=== PATIENT | female | born 1950 | race Asian ===

== ENCOUNTER 2016-07-12 07:12 | Day surgery (SDC) | payer OTHER ==
[2016-07-10 16:22] VITALS: BMI 23.8
[2016-07-12] MEDS ORDERED: LIDOCAINE HCL 1%, 10 MG/ML (20ML VIAL) ONE (08:17)
[2016-07-12] MEDS ORDERED: HEPARIN NA (PORCINE) 5,000 UNITS/ML 1ML VIAL ONE ×2 (08:18→09:47)
[2016-07-12] MEDS ORDERED: MIDAZOLAM HCL 2 MG/2 ML SINGLE DOSE VIAL ONE ×2 (09:18→09:27)
[2016-07-12] MEDS ORDERED: ceFAZolin SODIUM 1 GM VIAL IVPB ONE (09:21)
[2016-07-12] MEDS ORDERED: ceFAZolin SODIUM 1 GM VIAL ONE (09:26)
[2016-07-12] MEDS ORDERED: LIDOCAINE HCL 1%, 10 MG/ML (20ML VIAL) IJ ONE ×2 (09:35)
[2016-07-12] MEDS ORDERED: HEPARIN NA (PORCINE) 5,000 UNITS/ML 1ML VIAL SQ ONE (09:35)
[2016-07-12] MEDS ORDERED: CLOPIDOGREL BISULFATE 75 MG TABLET (FP) PO ONE (10:23)
--- NOTE | 2016-07-12 10:27 | OP ---
Operative Note - Note: Operative Date: 07/12/16 Pre-Operative Diagnosis: Right lower extremity claudication Operation: Aortogram, Right lower extremity angiogram, SFA DCB angioplasty Findings: Stent occlusion from origin Post-Operative Diagnosis: Same as Pre-op Surgeon: Lai Cole Anesthesia: Fractional Estimated Blood Loss (mls): 50 Operative Report Dictated: Yes
--- NOTE | 2016-07-12 10:28 | HP ---
Admitting History and Physical - Admission Chief Complaint: right lower extremity claudication - Smoking History Smoking history: Former smoker Have you smoked in the past 12 months: Yes Aproximately how many cigarettes per day: 1 - Alcohol/Substance Use Hx Alcohol Use: No Home Medications - Allergies Allergies/Adverse Reactions: Allergies Allergy/AdvReac Type Severity Reaction Status Date / Time No Known Drug Allergies Allergy Verified 07/12/16 08:38 - Home Medications Home Medications: Ambulatory Orders Clopidogrel Bisulfate [Plavix -] 75 mg PO HS 04/15/15 Cyanocobalamin [Vitamin B12 -] 1,000 mcg PO DAILY 04/15/15 Insulin Detemir [Levemir Flextouch] 47 unit SQ HS 04/15/15 Levothyroxine [Synthroid -] 88 mcg PO DAILY 04/15/15 Valsartan [Diovan] 320 mg PO DAILY 04/15/15 Vitamin B Complex [B Complex] 1 each PO HS 04/15/15 Amlodipine Besylate 10 mg PO DAILY 01/25/16 Bimatoprost [Lumigan] 1 drop OU BID 01/25/16 Polyethylene Glycol 300 [Base C Polyethylene Glycol 300] 1 ml MC BID 01/25/16 Clopidogrel Bisulfate [Plavix -] 75 mg PO DAILY #30 tablet 07/12/16 Physical Examination Vital Signs: Vital Signs Temperature 97.7 F 07/12/16 08:37 Pulse Rate 80 07/12/16 08:37 Respiratory Rate 20 07/12/16 08:37 Blood Pressure 123/72 07/12/16 08:37 O2 Sat by Pulse Oximetry (%) 100 07/12/16 08:33 Constitutional: Yes: Well Nourished Eyes: Yes: WNL HENT: Yes: WNL Neck: Yes: WNL Cardiovascular: Yes: WNL Respiratory: Yes: WNL Gastrointestinal: Yes: WNL Extremities: Yes: WNL Edema: No Assessment/Plan right lower ext claudication 1. For angiogram today
[2016-07-12] MEDS ORDERED: ONDANSETRON 4 MG/2 ML VIAL IVPUSH PRN (10:33)
[2016-07-12] MEDS ORDERED: oxyCODONE HCL 5 MG TABLET PO PRN (10:33)
[2016-07-12] MEDS ORDERED: PROMETHAZINE HCL 25 MG/1 ML VIAL IVPUSH PRN (10:33)
[2016-07-12] MEDS ORDERED: CLOPIDOGREL BISULFATE 75 MG TABLET (FP) ONE (11:28)
--- NOTE | 2016-07-12 11:46 | OP ---
DATE OF OPERATION: 07/12/2016 PREOPERATIVE DIAGNOSIS: Right lower extremity claudication. POSTOPERATIVE DIAGNOSIS: Right lower extremity claudication. PROCEDURE: Aortogram, right lower extremity angiogram, right superficial femoral artery drug-coated balloon angioplasty. SURGEON: Lai Ty DO ANESTHESIA: Fractional. BLOOD LOSS: 50 mL. INDICATION: The patient is a 66-year-old female who has right lower extremity claudication. In the past she has had right SFA stents placed which 1 time prior the stents had closed from the origin, where she had another new stent placed and had angioplasty. Now she had preoperative ultrasound done as part of her surveillance, and it was found that her stents were closed again in the midportion. At this point it was decided that she would need a repeat angiogram. The patient was consented for the procedure, understanding all risks, benefits, and alternatives. She was then brought into the operating room. DESCRIPTION OF PROCEDURE: Once in operating suite, placed on the operating table in supine manner. The area of the left and right groins was prepped and draped in sterile surgical manner. We then injected 10 mL of lidocaine 1% over the left common femoral artery. We then went ahead and used our Micropuncture needle, punctured the left common femoral artery. Micropuncture wire was inserted and Micropuncture sheath was inserted. Additional 5-S[place]ankan sheath was inserted. A 0.035 floppy guidewire was inserted into the aorta, followed by a Urbina catheter. We then shot an aortogram via hand injection showing that the aorta and iliac arteries were without any disease. We then placed a 0.035 floppy guidewire down to the right common femoral artery, followed by the Urbina catheter. We then shot an angiogram of the right lower extremity showing that the SFA was closed at the origin where the stents were, all the way down to the mid SFA. The distal SFA stents were patent. At this point we placed a 0.035 stiff guidewire into the SFA. We then removed our Urbina catheter. We then placed a 6 x 45 crossover sheath. IV heparin 5000 units was administered to the patient. We then went ahead and using our Quick-Cross catheter we were able to cross our stent and placed a wire in anterior tibial artery. We then went ahead and used a 4 x 4 Ultraverse balloon to open one of the stents in the mid SFA. We then went ahead and used two 6 x 150 Lutonix drug-coated balloons and performed angioplasty of the entire SFA which was lined with the stent. Completion angiogram then was performed of the right lower extremity showing that the common femoral artery was patent, profunda was patent, SFA was completely patent. Popliteal artery was patent, and patient had main runoff into the foot with the anterior tibial artery. At this point we brought our sheath up and over, and StarClose device was successfully deployed in the left common femoral artery. Pressure was held for 5 minutes. There was no bleeding. Area was wet and dried and Dermabond was placed. The patient tolerated the procedure with no complication. Patient transferred to PACU in stable condition. LAI TY DO [id number]
[2016-07-12 11:47] VITALS: TEMP 98.5
[2016-07-12 13:27] VITALS: BP 144/74; PULSE 75
== END 2016-07-12 13:00 | disposition home or self-care (01) ==
LOC: JASU-SURG 07:12
PROVIDERS: ATTEND Surgery Vascular Surgery
PROC: 047N3D1 Dilation of Left Popliteal Artery with Intraluminal Device, using Drug-Coated Balloon, Percutaneous Approach (ICD-10-PCS; principal; 2016-07-12 08:30)
DX: I70.211 Atherosclerosis of native arteries of extremities with intermittent claudication, right leg (principal); Z87.891 Personal history of nicotine dependence
CPT/HCPCS: 37226; C1874; C2623; 76000-TC; 94760; J1644

== ENCOUNTER 2017-07-25 07:47 | Day surgery (SDC) | payer BC, OTHER ==
[2017-07-24 10:04] VITALS: BMI 25.3
[2017-07-25] MEDS ORDERED: HEPARIN NA (PORCINE) 5,000 UNITS/ML 1ML VIAL ONE (08:39)
[2017-07-25] MEDS ORDERED: LIDOCAINE HCL 1%, 10 MG/ML (20ML VIAL) ONE (08:39)
--- NOTE | 2017-07-25 09:03 | HP ---
Admitting History and Physical - Admission Chief Complaint: RLE claudication. History of SFA angioplasty with stent placement. Limitations to Obtaining History: No Limitations - Past Medical History ...: No - Smoking History Smoking history: Never smoked Have you smoked in the past 12 months: No Aproximately how many cigarettes per day: 0 - Alcohol/Substance Use Hx Alcohol Use: No Home Medications - Allergies Allergies/Adverse Reactions: Allergies Allergy/AdvReac Type Severity Reaction Status Date / Time anesthesia Allergy Intermediate Swelling Uncoded 07/24/17 10:08 - Home Medications Home Medications: Ambulatory Orders Clopidogrel Bisulfate [Plavix -] 75 mg PO HS 04/15/15 Cyanocobalamin [Vitamin B12 -] 1,000 mcg PO DAILY 04/15/15 Insulin Detemir [Levemir Flextouch] 47 unit SQ 04/15/15 Levothyroxine [Synthroid -] 88 mcg PO DAILY 04/15/15 Valsartan [Diovan] 320 mg PO DAILY 04/15/15 Vitamin B Complex [B Complex] 1 each PO 04/15/15 Amlodipine Besylate 10 mg PO DAILY 01/25/16 Bimatoprost [Lumigan] 1 drop OU 01/25/16 Polyethylene Glycol 300 [Base C Polyethylene Glycol 300] 1 ml MC BID 01/25/16 Review of Systems - Review of Systems Constitutional: reports: No Symptoms Eyes: reports: No Symptoms HENT: reports: No Symptoms Neck: reports: No Symptoms Cardiovascular: reports: No Symptoms Respiratory: reports: No Symptoms Gastrointestinal: reports: No Symptoms Genitourinary: reports: No Symptoms Breasts: reports: No Symptoms Reported Musculoskeletal: reports: No Symptoms Integumentary: reports: No Symptoms Neurological: reports: No Symptoms Endocrine: reports: No Symptoms Hematology/Lymphatic: reports: No Symptoms Psychiatric: reports: No Symptoms Physical Examination Vital Signs: Vital Signs Temperature 97.9 F 07/25/17 08:21 Pulse Rate 78 07/25/17 08:21 Respiratory Rate 20 07/25/17 08:21 Blood Pressure 112/59 07/25/17 08:21 O2 Sat by Pulse Oximetry (%) 99 07/25/17 08:20 Constitutional: Yes: Well Nourished, No Distress, Calm Eyes: Yes: WNL, Conjunctiva Clear, EOM Intact HENT: Yes: WNL, Atraumatic, Normocephalic Neck: Yes: WNL, Supple, Trachea Midline Cardiovascular: Yes: WNL, Regular Rate and Rhythm Respiratory: Yes: WNL, Regular, CTA Bilaterally Gastrointestinal: Yes: WNL, Normal Bowel Sounds Musculoskeletal: Yes: WNL Extremities: Yes: WNL Edema: No Integumentary: Yes: WNL Neurological: Yes: WNL, Alert, Oriented ...Motor Strength: WNL Psychiatric: Yes: WNL Problem List - Problems (1) Arterial insufficiency of lower extremity Code(s): I73.9 - PERIPHERAL VASCULAR DISEASE, UNSPECIFIED Assessment/Plan RLE claudication 1. For angiogram today.
[2017-07-25] MEDS ORDERED: MIDAZOLAM HCL 2 MG/2 ML SINGLE DOSE VIAL ONE (10:04)
[2017-07-25] MEDS ORDERED: PROPOFOL 20 ML ONE (10:04)
[2017-07-25] MEDS ORDERED: LIDOCAINE HCL/PF 2% SDV 5ML VIAL ONE (10:04)
--- NOTE | 2017-07-25 10:37 | OP ---
Operative Note - Note: Operative Date: 07/25/17 Pre-Operative Diagnosis: RLE claudication Operation: Aortogram, RLE angiogram, SFA angioplasty Findings: Instent stenosis Post-Operative Diagnosis: Same as Pre-op Surgeon: Lai Cole Anesthesia: Fractional Estimated Blood Loss (mls): 30 Operative Report Dictated: Yes
[2017-07-25] MEDS ORDERED: ONDANSETRON 4 MG/2 ML VIAL IVPUSH PRN (10:45)
[2017-07-25 12:30] VITALS: TEMP 98
[2017-07-25] MEDS ORDERED: LACTATED RINGERS SOLUTION 1,000 ML IV SCH (14:30)
[2017-07-25 15:39] VITALS: BP 114/55; PULSE 77
--- NOTE | 2017-08-09 17:47 | OP ---
DATE OF OPERATION: 07/25/2017 PREOPERATIVE DIAGNOSIS: Right lower extremity claudication. POSTOPERATIVE DIAGNOSIS: Right lower extremity claudication. PROCEDURE: Aortogram, right lower extremity angiogram, angioplasty. FINDINGS: Extensive stenosis. SURGEON: Lai Ty D.O. ANESTHESIA: Fractional. BLOOD LOSS: 10 mL. INDICATION: The patient is a 67-year-old female that comes in with right lower extremity claudication. She has had SFA angioplasty with stent placement in the past for occlusion of her SFA. On preoperative ultrasound, the SFA stent was occluded in certain areas, and patient needs an angiogram. Patient came into ambulatory surgery. Patient was consented for the procedure understanding all risks, benefits, and alternatives and then taken to the operating room. DESCRIPTION OF PROCEDURE: Once in the operating room, she was laid on the operating table in a supine manner, and the area of the left groin was prepped and draped in a sterile surgical manner. We then injected 10 mL of lidocaine 1% over the left common femoral artery. We then used a Micropuncture needle and punctured the left common femoral artery. A Micropuncture wire was inserted, and a 5-Amharic sheath was inserted. We then placed a 0.035 floppy guidewire up into the aorta followed by an Omniflush catheter. We then shot an aortogram by hand injection showing that the aorta and the iliac arteries were without any disease. We then used our 0.035 stiff guidewire and went up and over to the right common femoral artery and our Omniflush catheter followed. We then went ahead and shot a right lower extremity angiogram via hand injection showing that the common femoral artery and the profunda were patent, but the SFA was patent with areas of severe stenosis in the stent. The area after the stent in the distal SFA and popliteal artery were all patent. At this point, we placed 0.035 stiff guidewire down into the SFA stent. We removed Omniflush catheter, placed a 6 x 45 crossover sheath. 5000 units of IV heparin were administered to the patient. We then went ahead and brought our wire all the way down into the popliteal artery. We then used a 5 x 200 balloon and performed angioplasty of the entire stent. Completion angiogram now showed that the stent was patent. There was good brisk flow into the foot. At this point, we brought our sheath up and over, Starclose device was successfully deployed in the left common femoral artery. Pressure was held for 5 minutes, after which there was no more bleeding. Areas were then dried and Dermabond was placed. Patient tolerated the procedure with no complications. Patient was transferred to PACU in stable condition. LAI TY DO [id number]
== END 2017-07-25 14:45 | disposition home or self-care (01) ==
LOC: JASU-SURG 07:47
PROVIDERS: ATTEND Surgery Vascular Surgery
PROC: B41DZZZ Fluoroscopy of Aorta and Bilateral Lower Extremity Arteries (ICD-10-PCS; 2017-07-25)
PROC: 047K3ZZ Dilation of Right Femoral Artery, Percutaneous Approach (ICD-10-PCS; principal; 2017-07-25 09:00)
DX: I70.211 Atherosclerosis of native arteries of extremities with intermittent claudication, right leg (principal); E11.9 Type 2 diabetes mellitus without complications; Z79.4 Long term (current) use of insulin; I10 Essential (primary) hypertension; D64.9 Anemia, unspecified
CPT/HCPCS: 37224; C1725; 76000-TC-FY; 82962; 94760; J1644

== ENCOUNTER 2017-12-19 08:15 | Day surgery (SDC) | payer OTHER ==
[2017-12-18 13:23] VITALS: BMI 25.3
[2017-12-19] MEDS ORDERED: HEPARIN NA (PORCINE) 5,000 UNITS/ML 1ML VIAL ONE (10:29)
[2017-12-19] MEDS ORDERED: LIDOCAINE HCL 2% (20ML MULTI-DOSE VIAL) NR ONE (10:29)
[2017-12-19] MEDS ORDERED: MIDAZOLAM HCL 2 MG/2 ML SINGLE DOSE VIAL ONE ×2 (10:55)
[2017-12-19] MEDS ORDERED: ceFAZolin SODIUM 1 GM VIAL IVPB ONE (11:00)
[2017-12-19] MEDS ORDERED: LIDOCAINE HCL 1%, 10 MG/ML (20ML VIAL) NR ONE (11:05)
[2017-12-19] MEDS ORDERED: HEPARIN NA (PORCINE) 5,000 UNITS/ML 1ML VIAL SQ ONE (11:07)
[2017-12-19] MEDS ORDERED: ONDANSETRON 4 MG/2 ML VIAL IVPUSH PRN (11:53)
[2017-12-19] MEDS ORDERED: oxyCODONE HCL 5 MG TABLET PO PRN (11:53)
[2017-12-19] MEDS ORDERED: PROMETHAZINE HCL 25 MG/1 ML VIAL IVPB PRN (11:53)
[2017-12-19] MEDS ORDERED: LACTATED RINGERS SOLUTION 1,000 ML IV SCH (12:00)
--- NOTE | 2017-12-19 12:04 | OP ---
Operative Note - Note: Operative Date: 12/19/17 Pre-Operative Diagnosis: Right lower extremity claudication Operation: Aortogram, RLE angiogram, SFA angioplasty Findings: Instent stenosis Post-Operative Diagnosis: Same as Pre-op Surgeon: Lai Cole Anesthesia: Fractional Estimated Blood Loss (mls): 50 Operative Report Dictated: Yes
--- NOTE | 2017-12-19 12:05 | HP ---
Admitting History and Physical - Admission Chief Complaint: Right lower extremity claudication, with history of sfa stents Limitations to Obtaining History: No Limitations - Past Medical History ...: No - Smoking History Smoking history: Former smoker Have you smoked in the past 12 months: No Aproximately how many cigarettes per day: 1 If you are a former smoker, when did you quit?: 03/2017 - Alcohol/Substance Use Hx Alcohol Use: No Home Medications - Allergies Allergies/Adverse Reactions: Allergies Allergy/AdvReac Type Severity Reaction Status Date / Time Anesthetics - Gege Type- Allergy Severe Swelling Verified 12/18/17 13:01 Parabens - Home Medications Home Medications: Ambulatory Orders Clopidogrel Bisulfate [Plavix -] 75 mg PO HS 04/15/15 Cyanocobalamin [Vitamin B12 -] 1,000 mcg PO DAILY 04/15/15 Levothyroxine [Synthroid -] 88 mcg PO DAILY 04/15/15 Valsartan [Diovan] 320 mg PO DAILY 04/15/15 Vitamin B Complex [B Complex] 1 each PO HS 04/15/15 Amlodipine Besylate 10 mg PO DAILY 01/25/16 Bimatoprost [Lumigan] 1 drop OU HS 01/25/16 Polyethylene Glycol 300 [Base C Polyethylene Glycol 300] 1 ml MC BID 01/25/16 Insulin Degludec [Tresiba Flextouch U-200] 200 unit SQ DAILY 12/18/17 Review of Systems - Review of Systems Constitutional: reports: No Symptoms Eyes: reports: No Symptoms HENT: reports: No Symptoms Neck: reports: No Symptoms Cardiovascular: reports: No Symptoms Respiratory: reports: No Symptoms Gastrointestinal: reports: No Symptoms Musculoskeletal: reports: No Symptoms Integumentary: reports: No Symptoms Neurological: reports: No Symptoms Hematology/Lymphatic: reports: No Symptoms Psychiatric: reports: No Symptoms Physical Examination Vital Signs: Vital Signs Temperature 97.8 F 12/19/17 08:48 Pulse Rate 75 12/19/17 08:48 Respiratory Rate 18 12/19/17 08:48 Blood Pressure 116/57 L 12/19/17 08:48 O2 Sat by Pulse Oximetry (%) 100 12/19/17 08:48 Constitutional: Yes: Well Nourished, No Distress, Calm Eyes: Yes: WNL, Conjunctiva Clear, EOM Intact HENT: Yes: WNL, Atraumatic, Normocephalic Neck: Yes: WNL, Supple, Trachea Midline Cardiovascular: Yes: WNL, Regular Rate and Rhythm Respiratory: Yes: WNL, Regular, CTA Bilaterally Gastrointestinal: Yes: WNL, Normal Bowel Sounds Musculoskeletal: Yes: WNL Extremities: Yes: WNL Edema: No Integumentary: Yes: WNL Neurological: Yes: WNL, Alert, Oriented ...Motor Strength: WNL Psychiatric: Yes: WNL Problem List - Problems (1) Claudication of right lower extremity Assessment/Plan: Claudication right lower ext. 1. For angiogram today Code(s): I73.9 - PERIPHERAL VASCULAR DISEASE, UNSPECIFIED (2) Arterial insufficiency of lower extremity Code(s): I73.9 - PERIPHERAL VASCULAR DISEASE, UNSPECIFIED
[2017-12-19] MEDS ORDERED: oxyCODONE HCL 5 MG TABLET ONE (13:11)
[2017-12-19 14:46] VITALS: TEMP 97.7
--- NOTE | 2017-12-19 15:09 | OP ---
ADDENDUM DATE OF OPERATION: DATE OF DICTATION: 12/19/2017 The operation should say aortogram, right lower extremity angiogram, SFA angioplasty with SFA stent placement. MINH TY DO [id number]
--- NOTE | 2017-12-19 15:45 | OP ---
DATE OF OPERATION: 12/19/2017 PREOPERATIVE DIAGNOSIS: Right lower extremity claudication. POSTOPERATIVE DIAGNOSIS: Right lower extremity claudication. PROCEDURE: Aortogram, right lower extremity angiogram, SFA angioplasty. FINDINGS: In-stent stenosis of right SFA. SURGEON: Lai Ty DO ANESTHESIA: Fractional. BLOOD LOSS: 50 mL. The patient is a 67-year-old female that comes in with right lower extremity claudication. She has a history of SFA stent and angioplasty. She had a preoperative ultrasound showing the stents were occluded. She came in through ambulatory surgery. Patient was consented for the procedure, understanding all risks, benefits, and alternatives and taken to the operating room. Once in the operating room, she was placed on the operating table in supine manner. The area of the right and left groin were prepped and draped in sterile surgical manner. We then went ahead and injected 10 mL of lidocaine 1% over the left common femoral artery. We then went ahead and used our micropuncture needed to puncture the left common femoral artery, and micropuncture wire was inserted, micropuncture sheath was inserted, and a traditional 5-Upper Sorbian sheath was inserted. A 0.035 floppy guidewire was placed into the aorta followed by Omni Flush catheter. We then shot an aortogram via hand injection showing that the aorta and the iliac arteries were without any disease. We then went up and over using our wire and placed a wire in the right common femoral artery, and an Omni Flush catheter followed. We then used a 0.035 Stiff 260 wire. We were able to place the wire. We then were able to selectively cannulate it into our stent. We then went ahead and removed our Omni Flush catheter, and 6 x 45 Crossover sheath was placed, and 5000 units of IV heparin was administered. We then went ahead and shot an angiogram of the right lower extremity showing that the stents were occluded from its proximal distal portion and the behind knee popliteal artery was patent with 2 vessel runoff. At this point, we placed a 0.035 Stiff guidewire down the stent along with a Quick-Cross catheter, and we were able to cross the stent and place the wire into the craig artery. We then went ahead and used a 6 x 200 ULTRAVERSE balloon, and we went ahead and performed angioplasty of the entire stent. Completion angiogram now showed that the stent was opened, but the proximal area had significant stenosis. At this point, the 6 x 4 LIFESTENT was placed in the proximal SFA at the origin, and the stent was ballooned in place using a 6 x 4 ULTRAVERSE balloon. Completion angiogram now showed that the proximal portion was completely patent and there was good runoff through the stent into the popliteal artery, and it was 2-vessel runoff with main runoff being the TP into the foot. At this point, we brought our sheath up and over, and StarClose Device was successfully deployed in the left common femoral artery. Pressure was held for 5 minutes. After there was no more bleeding. The areas were then dried, and Dermabond was placed. Patient tolerated the procedure with no complication. Patient transferred to PACU in stable condition. LAI TY DO [id number]
[2017-12-19 17:01] VITALS: BP 107/59; PULSE 64
== END 2017-12-19 16:00 | disposition home or self-care (01) ==
LOC: JASU-SURG 08:15
PROVIDERS: ATTEND Surgery Vascular Surgery
PROC: 047K3DZ Dilation of Right Femoral Artery with Intraluminal Device, Percutaneous Approach (ICD-10-PCS; principal; 2017-12-19 10:00)
DX: I70.211 Atherosclerosis of native arteries of extremities with intermittent claudication, right leg (principal); E11.9 Type 2 diabetes mellitus without complications; I10 Essential (primary) hypertension; Z79.4 Long term (current) use of insulin
CPT/HCPCS: 37226; C1877; 76000-TC-FY; 94760; J1644

== ENCOUNTER 2018-04-10 10:21 | Day surgery (SDC) | payer OTHER ==
[2018-04-01 17:58] VITALS: BMI 24.5
[2018-04-10] MEDS ORDERED: LIDOCAINE HCL/PF 2% SDV 5ML VIAL ONE (13:32)
[2018-04-10] MEDS ORDERED: HEPARIN NA (PORCINE) 5,000 UNITS/ML 1ML VIAL ONE (13:32)
[2018-04-10] MEDS ORDERED: MIDAZOLAM HCL 2 MG/2 ML SINGLE DOSE VIAL ONE (13:33)
[2018-04-10] MEDS ORDERED: PROPOFOL 20 ML ONE (13:33)
[2018-04-10] MEDS ORDERED: ceFAZolin SODIUM 1 GM VIAL IVPB ONE (14:00)
[2018-04-10] MEDS ORDERED: LIDOCAINE HCL 1%, 10 MG/ML (20ML VIAL) NR ONE ×2 (14:02)
[2018-04-10] MEDS ORDERED: ceFAZolin SODIUM 1 GM VIAL ONE (14:08)
[2018-04-10] MEDS ORDERED: oxyCODONE HCL 5 MG TABLET PO PRN (15:03)
[2018-04-10] MEDS ORDERED: ONDANSETRON 4 MG/2 ML VIAL IVPUSH PRN (15:03)
[2018-04-10] MEDS ORDERED: LACTATED RINGERS SOLUTION 1,000 ML IV SCH (15:15)
--- NOTE | 2018-04-10 15:23 | OP ---
Operative Note - Note: Operative Date: 04/10/18 Pre-Operative Diagnosis: RLE claudication Operation: aortogram, RLE angiogram, SFA angioplasty Findings: instent stenosis Post-Operative Diagnosis: Same as Pre-op Surgeon: Lai Cole Anesthesia: Fractional Estimated Blood Loss (mls): 50 Operative Report Dictated: Yes
[2018-04-10] MEDS ORDERED: CLOPIDOGREL BISULFATE 75 MG TABLET (FP) PO ONE (15:24)
--- NOTE | 2018-04-10 15:24 | HP ---
Admitting History and Physical - Admission Chief Complaint: RLE claudication Limitations to Obtaining History: No Limitations - Past Medical History ...: No - Smoking History Smoking history: Former smoker Have you smoked in the past 12 months: No Aproximately how many cigarettes per day: 1 If you are a former smoker, when did you quit?: 2016 - Alcohol/Substance Use Hx Alcohol Use: No Home Medications - Allergies Allergies/Adverse Reactions: Allergies Allergy/AdvReac Type Severity Reaction Status Date / Time Anesthetics - Gege Type- Allergy Severe Swelling Verified 04/10/18 11:36 Parabens - Home Medications Home Medications: Ambulatory Orders Clopidogrel Bisulfate [Plavix -] 75 mg PO HS 04/15/15 Cyanocobalamin [Vitamin B12 -] 1,000 mcg PO DAILY 04/15/15 Levothyroxine [Synthroid -] 88 mcg PO DAILY 04/15/15 Valsartan [Diovan] 320 mg PO DAILY 04/15/15 Vitamin B Complex [B Complex] 1 each PO HS 04/15/15 Amlodipine Besylate 10 mg PO DAILY 01/25/16 Bimatoprost [Lumigan] 1 drop OU HS 01/25/16 Polyethylene Glycol 300 [Base C Polyethylene Glycol 300] 1 ml MC BID 01/25/16 Insulin Degludec [Tresiba Flextouch U-200] 200 unit SQ DAILY 12/18/17 Insulin Glargine,Hum.rec.anlog [Toujeo Solostar] 30 unit SQ DAILY 04/01/18 Insulin Lispro [Humalog] 5 unit SQ TID 04/01/18 Review of Systems - Review of Systems Constitutional: reports: No Symptoms Eyes: reports: No Symptoms HENT: reports: No Symptoms Neck: reports: No Symptoms Cardiovascular: reports: No Symptoms Respiratory: reports: No Symptoms Gastrointestinal: reports: No Symptoms Genitourinary: reports: No Symptoms Breasts: reports: No Symptoms Reported Musculoskeletal: reports: No Symptoms Integumentary: reports: No Symptoms Neurological: reports: No Symptoms Endocrine: reports: No Symptoms Hematology/Lymphatic: reports: No Symptoms Psychiatric: reports: No Symptoms Physical Examination Vital Signs: Vital Signs Temperature 98.2 F 04/10/18 11:35 Pulse Rate 84 04/10/18 11:35 Respiratory Rate 20 04/10/18 11:35 Blood Pressure 133/65 04/10/18 11:35 O2 Sat by Pulse Oximetry (%) 96 04/10/18 11:29 Constitutional: Yes: Well Nourished, No Distress, Calm Eyes: Yes: WNL, Conjunctiva Clear, EOM Intact HENT: Yes: WNL, Atraumatic, Normocephalic Neck: Yes: WNL, Supple, Trachea Midline Cardiovascular: Yes: WNL, Regular Rate and Rhythm Respiratory: Yes: WNL, Regular, CTA Bilaterally Gastrointestinal: Yes: WNL, Normal Bowel Sounds Musculoskeletal: Yes: WNL Extremities: Yes: WNL Edema: No Peripheral Pulses WNL: No Integumentary: Yes: WNL Neurological: Yes: WNL, Alert, Oriented ...Motor Strength: WNL Psychiatric: Yes: WNL Problem List - Problems (1) Claudication of right lower extremity Assessment/Plan: For RLE angiogram today Code(s): I73.9 - PERIPHERAL VASCULAR DISEASE, UNSPECIFIED
[2018-04-10] MEDS ORDERED: CLOPIDOGREL BISULFATE 75 MG TABLET (FP) ONE (16:28)
[2018-04-10 17:15] VITALS: TEMP 97.8
[2018-04-10 17:47] VITALS: BP 135/51; PULSE 82
--- NOTE | 2018-04-11 23:43 | OP ---
DATE OF OPERATION: 04/10/2018 PREOPERATIVE DIAGNOSIS: Right lower extremity claudication. POSTOPERATIVE DIAGNOSIS: Right lower extremity claudication. PROCEDURE: Aortogram, right lower extremity angiogram, and angioplasty. SURGEON: Lai Ty M.D. ANESTHESIA: Fractional. BLOOD LOSS: 20 mL. INDICATION: The patient is a 67-year-old female who has right lower extremity claudication. On preoperative ultrasound it showed that stents in the right lower extremity in the SFA are occluded. Patient came into ambulatory surgery. Patient was consented for the procedure understanding all risks, benefits, and alternatives and taken to the operating room. DESCRIPTION OF PROCEDURE: Once in the operating room, she was laid on the operating table in a supine manner, and the area of the left and right groin are prepped and draped in a sterile surgical manner. We then injected 10 mL of lidocaine 1% over the left common femoral artery. We then punctured the left common femoral artery. A Micropuncture sheath was inserted, and a traditional 5-Hungarian sheath was inserted. We then placed 0.035 floppy guidewire up into the aorta followed by an Omniflush catheter. We then shot an aortogram by hand injection which showed that the aorta and the iliac arteries were without any disease. We then used our 0.035 floppy guide wire and went up and over to the right common femoral artery and our Omniflush catheter followed. We then shot an angiogram of the right lower extremity showing that the profundus opened, the common femoral arteries were open, but the SFA stents from the origin down to the distal SFA were occluded. The patient had 2-vessel runoff into the foot. At this point, we placed 0.035 stiff guidewire down into the SFA into the stents, Omniflush catheter was removed, and a 6 x 45 crossover sheath was placed. At this point we placed 0.035 stiff guidewire along with one of the Quick-Cross catheter, placed a wire down into the below knee popliteal artery. We then used a 5 x 200 Ultraverse balloon and performed angioplasty of the entire in stent stenosis. We then shot an angiogram, now showed that the stents were patent, there was good brisk flow into the foot. There was no further intervention needed. At this point, we brought our sheath up and over, and StarClose device was successfully deployed on the left common femoral artery. Pressure was held for 5 minutes until there was no bleeding. Areas were then dried and Dermabond was placed. Patient tolerated the procedure without complications. Patient was transferred to PACU in stable condition. LAI TY DO [id number]
== END 2018-04-10 17:40 | disposition home or self-care (01) ==
LOC: JASU-SURG 10:21
PROVIDERS: ATTEND Surgery Vascular Surgery
PROC: 047K3ZZ Dilation of Right Femoral Artery, Percutaneous Approach (ICD-10-PCS; principal; 2018-04-10 13:00)
DX: I70.211 Atherosclerosis of native arteries of extremities with intermittent claudication, right leg (principal); I10 Essential (primary) hypertension; E11.9 Type 2 diabetes mellitus without complications; Z79.4 Long term (current) use of insulin
CPT/HCPCS: 37224; C1885; 76000-TC-FY; 82962; 94760; J1644

== ENCOUNTER 2018-05-08 09:12 | Day surgery (SDC) | payer OTHER ==
[2018-05-07 17:38] VITALS: BMI 24.5
[2018-05-08] MEDS ORDERED: fentaNYL CITRATE 250 MCG/5 ML VIAL ONE (10:48)
[2018-05-08] MEDS ORDERED: PROPOFOL 20 ML ONE ×2 (10:48→11:33)
[2018-05-08] MEDS ORDERED: MIDAZOLAM HCL 2 MG/2 ML SINGLE DOSE VIAL ONE ×3 (10:48)
[2018-05-08] MEDS ORDERED: HEPARIN NA (PORCINE) 5,000 UNITS/ML 1ML VIAL ONE (10:54)
[2018-05-08] MEDS ORDERED: ceFAZolin SODIUM 1 GM VIAL IVPB ONE (11:05)
[2018-05-08] MEDS ORDERED: LIDOCAINE HCL 1% PRESERVATIVE FREE - 30ML VIAL IJ ONE (11:12)
[2018-05-08] MEDS ORDERED: ONDANSETRON 4 MG/2 ML VIAL IVPUSH PRN (12:32)
[2018-05-08] MEDS ORDERED: oxyCODONE HCL 5 MG TABLET PO PRN (12:32)
[2018-05-08] MEDS ORDERED: PROMETHAZINE HCL 25 MG/1 ML VIAL IVPB PRN (12:32)
--- NOTE | 2018-05-08 12:46 | HP ---
Admitting History and Physical - Admission Chief Complaint: RLE claudcication less than one block Limitations to Obtaining History: No Limitations - Past Medical History ...: No - Smoking History Smoking history: Former smoker Have you smoked in the past 12 months: No Aproximately how many cigarettes per day: 1 If you are a former smoker, when did you quit?: 2016 - Alcohol/Substance Use Hx Alcohol Use: No Home Medications - Allergies Allergies/Adverse Reactions: Allergies Allergy/AdvReac Type Severity Reaction Status Date / Time Anesthetics - Gege Type- Allergy Severe Swelling Verified 05/08/18 09:47 Parabens - Home Medications Home Medications: Ambulatory Orders Clopidogrel Bisulfate [Plavix -] 75 mg PO HS 04/15/15 Cyanocobalamin [Vitamin B12 -] 1,000 mcg PO DAILY 04/15/15 Levothyroxine [Synthroid -] 88 mcg PO DAILY 04/15/15 Valsartan [Diovan] 320 mg PO DAILY 04/15/15 Vitamin B Complex [B Complex] 1 each PO HS 04/15/15 Amlodipine Besylate 10 mg PO DAILY 01/25/16 Bimatoprost [Lumigan] 1 drop OU HS 01/25/16 Polyethylene Glycol 300 [Base C Polyethylene Glycol 300] 1 ml MC BID 01/25/16 Insulin Degludec [Tresiba Flextouch U-200] 200 unit SQ DAILY 12/18/17 Insulin Glargine,Hum.rec.anlog [Toujeo Solostar] 30 unit SQ DAILY 04/01/18 Insulin Lispro [Humalog] 5 unit SQ TID 04/01/18 Ibuprofen [Motrin -] 400 mg PO TID #90 tablet 04/11/18 Review of Systems - Review of Systems Constitutional: reports: No Symptoms Eyes: reports: No Symptoms HENT: reports: No Symptoms Neck: reports: No Symptoms Cardiovascular: reports: No Symptoms Respiratory: reports: No Symptoms Gastrointestinal: reports: No Symptoms Genitourinary: reports: No Symptoms Musculoskeletal: reports: No Symptoms Integumentary: reports: No Symptoms Neurological: reports: No Symptoms Endocrine: reports: No Symptoms Hematology/Lymphatic: reports: No Symptoms Psychiatric: reports: No Symptoms Physical Examination Vital Signs: Vital Signs Temperature 97.5 F L 05/08/18 09:31 Pulse Rate 82 05/08/18 09:31 Respiratory Rate 18 05/08/18 09:31 Blood Pressure 107/61 05/08/18 09:31 O2 Sat by Pulse Oximetry (%) 100 05/08/18 09:46 Constitutional: Yes: Well Nourished, No Distress, Calm Eyes: Yes: WNL, Conjunctiva Clear, EOM Intact HENT: Yes: WNL, Atraumatic, Normocephalic Neck: Yes: WNL, Supple, Trachea Midline Cardiovascular: Yes: WNL, Regular Rate and Rhythm Respiratory: Yes: WNL, Regular, CTA Bilaterally Gastrointestinal: Yes: WNL, Normal Bowel Sounds Musculoskeletal: Yes: WNL Extremities: Yes: WNL Edema: No Peripheral Pulses WNL: No Integumentary: Yes: WNL Neurological: Yes: WNL, Alert, Oriented ...Motor Strength: WNL Psychiatric: Yes: WNL Problem List - Problems (1) Claudication of right lower extremity Assessment/Plan: for angioplasty today Code(s): I73.9 - PERIPHERAL VASCULAR DISEASE, UNSPECIFIED
--- NOTE | 2018-05-08 12:48 | OP ---
Operative Note - Note: Operative Date: 05/08/18 Pre-Operative Diagnosis: RLE claudication Operation: Aortogram, RLE angiogram, DCB SFA angioplasty Findings: SFA instent occlusion Post-Operative Diagnosis: Same as Pre-op Surgeon: Lai Cole Anesthesia: Fractional Estimated Blood Loss (mls): 50 Operative Report Dictated: Yes
[2018-05-08] MEDS ORDERED: CLOPIDOGREL BISULFATE 75 MG TABLET (FP) PO ONE (13:15)
[2018-05-08 16:14] VITALS: BP 124/64; PULSE 86; TEMP 99.3
--- NOTE | 2018-05-09 07:53 | OP ---
DATE OF OPERATION: 05/08/2018 PREOPERATIVE DIAGNOSIS: Right lower extremity claudication. POSTOPERATIVE DIAGNOSIS: Right lower extremity claudication. PROCEDURE: Aortogram, right lower extremity angiogram, superficial femoral artery drug-coated balloon angioplasty. SURGEON: Lai Ty DO ANESTHESIA: Fractional. BLOOD LOSS: 50 mL. INDICATION FOR PROCEDURE: The patient is a 67-year-old female that has significant disease in her right lower extremity. She has claudication. 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 It was decided that she would need an angioplasty. Patient was consented for the procedure, understanding all risks, benefits, and alternatives. She was then taken to the operating room. DESCRIPTION OF PROCEDURE: Once in the operative suite, was laid on the operating table in supine manner. The area of the right and left groin were prepped and draped in sterile surgical manner. We then injected 10 mL lidocaine 1% over the left common femoral artery. We then took our Micropuncture needle and punctured the left common femoral artery. Micropuncture wire was inserted and a 5-Italian sheath was inserted. We then placed a 0.035 floppy guidewire up into the aorta, followed by Omniflush catheter. We then shot an aortogram by hand injection showing that the aorta and the iliac arteries are without any disease. We then used a 0.035 floppy guidewire, went up and over to the right common femoral artery and our Omniflush catheter followed. We then shot an angiogram of the right lower extremity showing that the common femoral artery and profunda are patent, but the entire stents going from the origin all the way to the distal SFA and above are occluded. At this point we placed a 0.035 stiff guidewire and selectively got into the stents. We then removed our Omniflush catheter. We then placed a 6-Italian x 45 crossover sheath. of IV heparin was administered to the patient. Using a seeker catheter, we were able to get through our stents and get into the lower [place] popliteal artery, and the wire was placed there. We then went ahead and used a 5 x 200 Ultraverse balloon and performed angioplasty of the entire stents. We then went ahead and used two 6 x 150s and a 6 x 4 drug-coated Lutonix balloons and kept the balloons up for 2 minutes to make sure that the drug disseminates into the stents. Completion angiogram now showed that the stents were patent. There was good brisk flow going down into the popliteal artery. There were no dissection planes. Patient had 1-vessel runoff in the form of the AT going into the foot. At this point no more intervention was needed. We brought our sheath up and over. StarClose device was successfully deployed in the left common femoral artery. Pressure was held for 5 minutes. After there was no more bleeding, the area was wet and dried and Dermabond was placed. The patient tolerated the procedure with no complications. Patient transferred to PACU in stable condition. LAI TY DO NP/[id number]
== END 2018-05-08 14:05 | disposition home or self-care (01) ==
LOC: JASU-SURG 09:12
PROVIDERS: ATTEND Surgery Vascular Surgery
PROC: B41DZZZ Fluoroscopy of Aorta and Bilateral Lower Extremity Arteries (ICD-10-PCS; 2018-05-08)
PROC: 047K3Z1 Dilation of Right Femoral Artery using Drug-Coated Balloon, Percutaneous Approach (ICD-10-PCS; principal; 2018-05-08 10:30)
DX: I70.211 Atherosclerosis of native arteries of extremities with intermittent claudication, right leg (principal); E11.9 Type 2 diabetes mellitus without complications; I10 Essential (primary) hypertension; J44.9 Chronic obstructive pulmonary disease, unspecified
CPT/HCPCS: 37224; C2623; 76000-TC-FY; 82962; 94760; J1644